=== PATIENT | male | born 1950 | race Caucasian/White ===

== ENCOUNTER → 2021-01-01 12:25 | Outpatient (CLI) | payer OTHER, SELFPAY | PROVIDERS: Visit Provider Internal Medicine Gastroenterology | DX: Z20.822 Contact with and (suspected) exposure to COVID-19 (principal) | CPT/HCPCS: U0003 ==

== ENCOUNTER 2021-01-04 11:29 | Day surgery (SDC) | payer OTHER, SELFPAY ==
[2020-12-31 10:48] VITALS: BMI 25.0
[2021-01-04 11:46] VITALS: BP 163/57; PULSE 60; RESP 16; TEMP 36.7; O2SAT 98
--- NOTE | 2021-01-04 12:07 | HMH.ANESCL ---
[facility] Anesthesia Checklist - Patient Identification Patient Identification: Arm Band - Structural Data Admitted From: Home Planned Operative Procedure/s: Colonoscopy Consent for Planned Operative Procedure(s) Verified: Yes - NPO Status Verified Time NPO: 00:00 - Airway Assessment C-Spine Mobility Assessed: Yes TMJ Mobility Assessed: Yes Dentition: Good Dentition - Neurological Assessment Level of Consciousness: Awake Hx Seizures: No Numbness or tingling in extremities: No - Anesthesia Plan Anesthesia Risk discussed: Yes Anesthesia Plan: Verified ASA Class: II Anesthesia Type: MAC [facility] History I have reviewed the patient's past medical history: Yes Medical History: Denies:: Cancer, Diabetes Mellitus Type 1, Diabetes Mellitus Type 2, Internal Pacemaker, MRSA, Seizures *Have you ever received a pneumonia vaccine?: No *Have you received a flu vaccine this season?: Yes Anesthesia experience/problems:: None Other Surgeries: No: Pacemaker Amputation: No Fractures: No - *Social History Last grade of school completed: High school graduate Smoking Status: Former smoker #Yrs smoked (if former smoker): 15 Smoking End Date: 3-4 YEARS AGO Alcohol Intake: current Alcohol Intake Frequency:: holidays/special occasions only Substance Use Type: denies use *Occupational Status:: retired Housing: house Household Members: spouse *Travel in the last 8 weeks: None Family Hx:: Diabetes
--- NOTE | 2021-01-04 12:42 | HMH.PROC ---
[facility] Procedure Note Procedure Note:: Colonoscopy Procedure Report: Colonoscopy Endoscopist: Iam Sesay II, MD Referring physician: Vance Wilson MD Date of Procedure: January 04, 2021 Equipment: Olympus 190 variable stiffness pediatric colonoscope Sedation: MAC sedation Indication: Mr. Contreras is a 70-year-old gentleman who is here for follow-up screening/surveillance colonoscopy. He did have a colonoscopy in 2003 at which time 2 small polyps (hyperplastic polyps x2) were removed. His colonoscopy April 2009 revealed 2 polyps (tubular adenoma x1/inflammatory polyp x1) were removed. His last colonoscopy in October 2015 revealed 4 small polyps (hyperplastic polyps x4) which were removed. He reports no abdominal pain, weight loss, change in his bowel habits or rectal bleeding. He reports no family history of colon cancer. Procedure: Prior to the procedure, a history and physical exam was performed, and patient's medications and allergies were reviewed. The risks, benefits and alternatives of the sedation and procedure were discussed with the patient. All questions were answered and informed consent was obtained. The patient was brought to the procedure room. Patient identification and proposed procedure were verified by the physician and the nurse. The patient was placed in a left lateral decubitus position and the scope was passed under direct vision. Throughout the procedure, the patient's blood pressure, pulse, and oxygen saturations were monitored continuously. The colonoscopy was accomplished without difficulty. The patient tolerated the procedure well. Findings: On digital rectal examination there was normal rectal tone. There were no external hemorrhoids. The prostate was 2+, smooth, soft, symmetric without nodules. The colonoscope was introduced through the anal canal to the rectum and advanced to the cecum. The ileocecal valve and appendiceal orifice were identified. The scope was advanced a short distance into the ileum which appeared grossly normal. The scope was then withdrawn into the colon. The cecum, ascending and transverse colon and mucosa were grossly normal. There were extensive scattered diverticuli throughout the descending and sigmoid colon (LEFT colon). The rectum itself was normal. Upon retroflexion within the rectum there were grade 2 internal hemorrhoids. The preparation was excellent throughout with [place] Preparation Score of 9. The cecal time was 12 minutes. Impression: 1. Extensive left-sided diverticulosis 2. Grade 2 internal hemorrhoids Plan: The patient should not require any further preventive/screening colonoscopy. I would encourage bulking fiber supplementation on a long-term daily maintenance basis.
[2021-01-04 13:15] VITALS: BP 125/84; PULSE 50; RESP 12; TEMP 36.3; O2SAT 98
[2021-01-04 13:25] VITALS: BP 114/86; PULSE 44; RESP 16; O2SAT 95
[2021-01-04 13:35] VITALS: BP 120/72; PULSE 44; RESP 16; O2SAT 97
[2021-01-04 13:42] VITALS: O2SAT 96
[2021-01-04 13:45] VITALS: BP 138/76; PULSE 50; RESP 16; TEMP 36.3; O2SAT 98
== END 2021-01-04 13:59 | disposition home or self-care (01) ==
LOC: OUTP 11:32
PROVIDERS: PCP Internal Medicine; Visit Provider Internal Medicine Gastroenterology
PROC: 0DJD8ZZ Inspection of Lower Intestinal Tract, Via Natural or Artificial Opening Endoscopic (ICD-10-PCS; CPT 45378; principal; 2021-01-04 14:00)
DX: Z12.11 Encounter for screening for malignant neoplasm of colon (principal); Z86.010 Personal history of colon polyps; K57.30 Diverticulosis of large intestine without perforation or abscess without bleeding; K64.1 Second degree hemorrhoids; Z79.899 Other long term (current) drug therapy; Z87.891 Personal history of nicotine dependence; Z83.3 Family history of diabetes mellitus
CPT/HCPCS: 45378

== ENCOUNTER → 2021-08-04 08:24 | Outpatient (CLI) | payer MEDICARE, SELFPAY ==
--- NOTE | 2021-08-04 08:28 | US_ITS ---
FINAL REPORT CLINICAL HISTORY: RT FLANK PAIN,RUQ PAIN-- gb absent FINDINGS: Sonographic images of the abdomen were obtained. The liver has increased echogenicity consistent with fatty infiltration. The gallbladder is surgically absent. There is no evidence of biliary ductal dilatation. The common hepatic duct measures 2 mm, which is within normal limits. Limited images of the pancreas are unremarkable. The spleen size is normal. The right kidney measures 11.2 cm in length. The left kidney measures 12.1 center in length. There is a 2.2 cm cystic mass in the left kidney which is consistent with a cyst. There is no evidence of hydronephrosis. The aorta has an unremarkable appearance. Limited images of the inferior vena cava are unremarkable. IMPRESSION: Post cholecystectomy. Fatty infiltration of the liver. Left renal cyst. Reviewed, Interpreted and Dictated by Jermaine Bender III, MD Transcribed by Zulma Mason Authenticated by Jermaine Bender III, MD on 08/04/2021 10:01:[address] [facility]
== END ==
PROVIDERS: PCP Internal Medicine; Visit Provider Internal Medicine
DX: R10.11 Right upper quadrant pain (principal); R10.9 Unspecified abdominal pain
CPT/HCPCS: 76700

== ENCOUNTER 2023-08-21 13:11 | Outpatient (CLI) | payer MEDICARE, SELFPAY ==
[2023-08-21 16:01] LABS: Basophils # 0.1 K/mm3 (0-0.2); Basophils % 1.2 % (0.1-2.0); Eosinophils # 0.1 K/mm3 (0.0-0.4); Eosinophils % 2.5 % (0.1-12.0); Hematocrit 49.1 % (42.0-52.0); Hemoglobin 15.6 g/dL (14.1-18.0); Lymphocytes # 1.4 K/mm3 (0.7-4.5); Lymphocytes % 25.3 % (10-50); Mean Corpuscular HGB Conc 31.7 g/dL (31.8-35.4); Mean Corpuscular Hemoglobin 31.9 pg (27.0-31.2); Mean Corpuscular Volume 100.6 fl (80-94); Mean Platelet Volume 9.1 fl (7.4-10.4); Monocytes # 0.4 K/mm3 (0.1-1.0); Monocytes % 7.3 % (1.7-9.3); Neutrophils # 3.5 K/mm3 (1.8-7.8); Neutrophils % 63.7 % (37.0-80.0); Platelet Count 204 K/mm3 (142-424); Red Blood Count 4.88 M/mm3 (4.60-6.20); Red Cell Distribution Width 13.6 % (11.5-17.5); White Blood Count 5.5 K/mm3 (4.8-10.8)
[2023-08-21 16:26] LABS: Alanine Aminotransferase 36 U/L (12-78); Albumin Level 4.5 g/dl (3.5-5.0); Albumin/Globulin Ratio 1.6 (1.1-1.8); Alkaline Phosphatase 99 U/L (38-126); Anion Gap 12.3 mEq/L (5-15); Aspartate Amino Transferase 39 U/L (17-59); Bilirubin,Total 0.8 mg/dl (0.2-1.3); Blood Urea Nitrogen 14 mg/dl (9-20); Calcium 9.6 mg/dl (8.4-10.2); Carbon Dioxide 31 mmol/L (22.0-30.0); Chloride 103 mmol/L (98-107); Chol/HDL Ratio 3.2 (1-3.5); Cholesterol 189 mg/dl (140-200); Estimated Glomerular Filt Rate 73 ml/min (>60); GFR (African American) 89 ML/MIN (>60); Globulin 2.9 g/dL (1.3-3.2); Glucose 94 mg/dl (74-100); HDL Cholesterol 59 mg/dl (40-60); Potassium 5.3 mmoL/L (3.5-5.1); Sodium 141 mmol/L (136-145); Total Protein,Serum 7.4 g/dl (6.3-8.2); Triglycerides 61 mg/dl (30-150); VLDL Cholesterol 12 mg/dL (0-40)
[2023-08-21 16:37] LABS: Direct LDL Cholesterol 101.41 mg/dL (100-129)
[2023-08-21 16:57] LABS: Prostate Specific Ag Screen 1.1 ng/ml (0.0-4.0)
[2023-08-23 19:50] LABS: Vitamin B12 236 pg/mL (239-931)
[2023-08-23 19:52] LABS: Folate 4.91 ng/mL
== END 2023-08-21 23:59 ==
LOC: LAB.DROPOF 13:12
PROVIDERS: PCP Internal Medicine; Visit Provider Internal Medicine
DX: E78.5 Hyperlipidemia, unspecified (principal); G60.9 Hereditary and idiopathic neuropathy, unspecified; N40.1 Benign prostatic hyperplasia with lower urinary tract symptoms; Z12.5 Encounter for screening for malignant neoplasm of prostate
CPT/HCPCS: 80053; 80061; 82607; 82746; 85025; G0103

== ENCOUNTER 2024-05-30 14:13 | Outpatient (CLI) | payer MEDICARE, SELFPAY ==
[2024-05-30 15:31] LABS: Vitamin B12 950 pg/mL (239-931)
== END 2024-05-30 23:59 | disposition home or self-care (01) ==
LOC: LAB.DROPOF 14:14
PROVIDERS: PCP Internal Medicine; Visit Provider Internal Medicine
DX: E53.8 Deficiency of other specified B group vitamins (principal)
CPT/HCPCS: 82607

== ENCOUNTER 2024-10-15 16:18 | Outpatient (CLI) | payer MEDICARE, SELFPAY ==
[2024-10-15 12:16] LABS: Basophils % 0.5 % (0.1-2.0); Eosinophils # 0.2 Kmm3 (0.0-0.4); Eosinophils % 2.7 % (0.1-12.0); Hematocrit 43.9 % (42.0-52.0); Hemoglobin 14.7 g/dL (14.1-18.0); Lymphocytes # 0.9 K/mm3 (0.7-4.5); Lymphocytes % 16.2 % (10-50); Mean Corpuscular HGB Conc 33.5 g/dL (31.8-35.4); Mean Corpuscular Hemoglobin 31.2 pg (27.0-31.2); Mean Corpuscular Volume 93.2 fl (80-94); Monocytes # 0.4 K/mm3 (0.1-1.0); Monocytes % 7.8 % (1.7-9.3); Neutrophils % 72.6 % (37.0-80.0); Nucleated Red Blood Cells # 0 10^3/uL; Nucleated Red Blood Cells % 0 %; Platelet Count 215 K/mm3 (142-424); Red Blood Count 4.71 M/mm3 (4.60-6.20); Red Cell Distribution Width 13.1 % (11.5-17.5); Red Cell Distribution Width-SD 44.8 fL; White Blood Count 5.5 K/mm3 (4.8-10.8)
[2024-10-15 12:46] LABS: Alanine Aminotransferase 39 U/L (12-78); Albumin Level 4.3 g/dl (3.5-5.0); Albumin/Globulin Ratio 1.4 (1.1-1.8); Alkaline Phosphatase 79 U/L (38-126); Anion Gap 12.5 mEq/L (5-15); Aspartate Amino Transferase 37 U/L (17-59); Bilirubin,Total 0.6 mg/dl (0.2-1.3); Blood Urea Nitrogen 17 mg/dl (9-20); Calcium 9.5 mg/dl (8.4-10.2); Carbon Dioxide 28 mmol/L (22.0-30.0); Chloride 107 mmol/L (98-107); Chol/HDL Ratio 2.7 (1-3.5); Cholesterol 200 mg/dl (140-200); Estimated Glomerular Filt Rate 73 ml/min (>60); GFR (African American) 89 ML/MIN (>60); Glucose 96 mg/dl (74-100); HDL Cholesterol 73 mg/dl (40-60); Potassium 4.5 mmoL/L (3.5-5.1); Sodium 143 mmol/L (136-145); Total Protein,Serum 7.3 g/dl (6.3-8.2); Triglycerides 52 mg/dl (30-150); VLDL Cholesterol 10 mg/dL (0-40)
[2024-10-15 13:14] LABS: Prostate Specific Ag Screen 0.9 ng/ml (0.0-4.0)
[2024-10-15 13:34] LABS: Vitamin B12 803 pg/mL (239-931)
== END 2024-10-15 23:59 | disposition home or self-care (01) ==
LOC: LAB.DROPOF 16:18
PROVIDERS: PCP Internal Medicine; Visit Provider Internal Medicine
DX: E53.8 Deficiency of other specified B group vitamins (principal); R03.0 Elevated blood-pressure reading, without diagnosis of hypertension; Z98.890 Other specified postprocedural states; E78.5 Hyperlipidemia, unspecified; Z12.5 Encounter for screening for malignant neoplasm of prostate; M79.2 Neuralgia and neuritis, unspecified
CPT/HCPCS: 80053; 80061; 82607; 85025; G0103

== ENCOUNTER 2025-05-13 16:48 | Outpatient (CLI) | payer MEDICARE, SELFPAY ==
--- OUTSIDE RECORDS SUMMARY | 2025-05-13 16:51 | XMS_ITS | Data Portability ---
Author Organization [facility] JOE Holder TAMPA CLOSED Address [address] [place] [address] Care Team Providers Care Quality Associate Name Role Phone PERNELLNATELora Bowen Primary Care Provider Assessment Encounter Date Assessment Date Assessment LastModified by Organization Details LastModified Time 07/17/2023 07/17/2023 Follow up yearly [email or web address] Not available 07/17/2023 09:39:43 09/06/2023 09/06/2023 Follow up yearly [email or web address] Not available 09/06/2023 15:07:13 02/06/2024 02/06/2024 Follow up yearly [email or web address] Not available 02/05/2024 13:56:25 Plan of Treatment Reminders Order Date Submit Date Provider Last Modified By Organization Details Last Modified Time Details Appointments DERM ESTABLISH ED 2024 11:10A M FLAKITO COTTON MD Not available Not available Not available Lab surgical pathology study 2023 024 [facility], [facility], [place], [address], 09/08/2023 10:30:45 urinalysi s panel, auto 2021 022 [facility], [address] [place] [address], [address], [place], [address], 06/16/2022 08:30:34 urinalysi s panel, auto 2021 022 [email or web address] [facility], [address], [address] [place] [address], [address], 05/07/2022 11:23:31 PSA, serum or plasma 2021 022 [email or web address] [facility], [address], [address], [place], [address], 05/07/2022 11:23:31 Referral None recorded. Procedures None recorded. Surgeries None recorded. Imaging None recorded. Medication Orders None recorded. Patient TargetsNo targets recorded. Patient Instructions Encounter Date Encounter Id Patient Instructions Last Modified By Organization Details Last Modified Time 06/15/2022 [id number] healthy together [email or web address] Not availabl e 06/16/2022 08:30:34 07/17/2023 [id number] Education: We discussed the potential diagnostic options, options for further evaluation and treatments, and the risks and benefits of each. [email or web address] Not available 07/17/2023 07:19:52 02/06/2024 [id number] Education: We discussed the potential diagnostic options, options for further evaluation and treatments, and the risks and benefits of each. [email or web address] Not available 02/05/2024 13:56:25 Reason for Referral None Reported. Results Created Date Observation Date Name Description Value Unit Range Abnormal Flag Note LastModifiedBy Organization Detail LastModifiedTime 04/12/2004/12/2022 urina lysis panel , auto Unknown Analyte Clean Catch Not Available [facility] [address], [place], [address], 04/12/2022 13:17:01 04/12/2004/12/2022 urina lysis panel , auto Unknown Analyte Yellow Not Available [facility] [address], [place], [address], 04/12/2022 13:17:01 04/12/20 22 04/12/2022 urina lysis panel , auto Unknown Analyte Clear Not Available [facility] [address] [place] [address] Rd [address], [place], [address], 04/12/2022 13:17:01 04/12/20 22 04/12/2022 urina lysis panel , auto Unknown Analyte 1.020 Not Available [facility] [address] [place] [address] Rd [address], [place], [address], 04/12/2022 13:17:01 04/12/2004/12/2022 urina lysis panel , auto Unknown Analyte 1.003- 1.035 Not Available [facility] [address], [place], [address], 04/12/2022 13:17:01 04/12/2004/12/2022 urina lysis panel , auto Unknown Analyte 5.0 Not Available [facility] [address] [place] [address] Rd [address], [place], [address], 04/12/2022 13:17:01 04/12/2004/12/2022 urina lysis panel , auto Unknown Analyte 5.0-8. 0 Not Available [facility] [address] [place] [address] Rd [address], [place], [address], 04/12/2022 13:17:01 04/12/2004/12/2022 urina lysis panel , auto Unknown Analyte Negati ve Not Available [facility] [address] [place] [address] Rd [address], [place], [address], 04/12/2022 13:17:01 04/12/20 22 04/12/2022 urina lysis panel , auto Unknown Analyte Negati ve Not Available [facility] [address] [place] [address] Rd [address], [place], [address], 04/12/2022 13:17:01 04/12/20 22 04/12/2022 urina lysis panel , auto Unknown Analyte Negati ve Not Available [facility] [address] [place] [address] Rd [address], [place], [address], 04/12/2022 13:17:01 04/12/2004/12/2022 urina lysis panel , auto Unknown Analyte Negati ve Not Available [facility] [address], [place], [address], 04/12/2022 13:17:01 04/12/2004/12/2022 urina lysis panel , auto Unknown Analyte Trace Not Available [facility] [address], [place], [address], 04/12/2022 13:17:01 04/12/2004/12/2022 urina lysis panel , auto Unknown Analyte Negati ve Not Available [facility] [address] [place] [address] Rd [address], [place], [address], 04/12/2022 13:17:01 04/12/2004/12/2022 urina lysis panel , auto Unknown Analyte Normal Not Available [facility] [address] [place] [address] Rd [address], [place], [address], 04/12/2022 13:17:01 04/12/2004/12/2022 urina lysis panel , auto Unknown Analyte Normal Not Available [facility] [address] [place] [address] Rd [address], [place], [address], 04/12/2022 13:17:01 04/12/2004/12/2022 urina lysis panel , auto Unknown Analyte 15 mg/dl (Sm) Not Available [facility] [address] [place] [address] Rd [address], [place], [address], 04/12/2022 13:17:01 04/12/2004/12/2022 urina lysis panel , auto Unknown Analyte Negati ve Not Available [facility] [address], [place], [address], 04/12/2022 13:17:01 04/12/2004/12/2022 urina lysis panel , auto Unknown Analyte Normal Not Available [facility] [address], [place], [address], 04/12/2022 13:17:01 04/12/2004/12/2022 urina lysis panel , auto Unknown Analyte Normal 1 mg/dl Not Available [facility] [address], [place], [address], 04/12/2022 13:17:01 04/12/2004/12/2022 urina lysis panel , auto Unknown Analyte Negati ve Not Available [facility] [address], [place], [address], 04/12/2022 13:17:01 04/12/2004/12/2022 urina lysis panel , auto Unknown Analyte Negati ve Not Available [facility] [address], [place], [address], 04/12/2022 13:17:01 04/12/20 22 04/12/2022 urina lysis panel , auto Unknown Analyte 250 Daniel/ul Not Available [facility] [address], [place], [address], 04/12/2022 13:17:01 04/12/2004/12/2022 urina lysis panel , auto Unknown Analyte Negati ve Not Available [facility] [address], [address], 04/12/2022 13:17:01 05/04/20 22 05/04/2022 PSA, serum or plasm a PSA 0.66 NG/mL 0.0 - 4.0 Not Available [facility] [address], [place], [address], 05/04/2022 14:53:27 05/04/20 22 05/04/2022 urina lysis panel , auto Unknown Analyte Clean Catch Not Available [facility] [address], [place], [address], 05/04/2022 13:15:45 05/04/20 22 05/04/2022 urina lysis panel , auto Unknown Analyte Straw Not Available [facility] [address], [place], [address], 05/04/2022 13:15:45 05/04/20 22 05/04/2022 urina lysis panel , auto Unknown Analyte Clear Not Available [facility] [address], [place], [address], 05/04/2022 13:15:45 05/04/20 22 05/04/2022 urina lysis panel , auto Unknown Analyte 1.005 Not Available [facility] [address], [place], [address], 05/04/2022 13:15:45 05/04/20 22 05/04/2022 urina lysis panel , auto Unknown Analyte 1.003- 1.035 Not Available [facility] [address], [place], [address], 05/04/2022 13:15:45 05/04/20 22 05/04/2022 urina lysis panel , auto Unknown Analyte 7.0 Not Available [facility] [address], [place], [address], 05/04/2022 13:15:45 05/04/20 22 05/04/2022 urina lysis panel , auto Unknown Analyte 5.0-8. 0 Not Available [facility] [address], [place], [address], 05/04/2022 13:15:45 05/04/20 22 05/04/2022 urina lysis panel , auto Unknown Analyte Negati ve Not Available [facility] [address] [place] [address] [address], [place], [address], 05/04/2022 13:15:45 05/04/20 22 05/04/2022 urina lysis panel , auto Unknown Analyte Negati ve Not Available [facility] [address] [place] [address] [address], [place], [address], 05/04/2022 13:15:45 05/04/20 22 05/04/2022 urina lysis panel , auto Unknown Analyte Negati ve Not Available [facility] [address] [place] [address] [address], [place], [address], 05/04/2022 13:15:45 05/04/20 22 05/04/2022 urina lysis panel , auto Unknown Analyte Negati ve Not Available [facility] [address], [place], [address], 05/04/2022 13:15:45 05/04/20 22 05/04/2022 urina lysis panel , auto Unknown Analyte Negati ve Not Available [facility] [address] [place] [address] [address], [place], [address], 05/04/2022 13:15:45 05/04/20 22 05/04/2022 urina lysis panel , auto Unknown Analyte Negati ve Not Available [facility] [address] [place] [address] [address], [place], [address], 05/04/2022 13:15:45 05/04/20 22 05/04/2022 urina lysis panel , auto Unknown Analyte Normal Not Available [facility] [address] [place] [address] [address], [place], [address], 05/04/2022 13:15:45 05/04/20 22 05/04/2022 urina lysis panel , auto Unknown Analyte Normal Not Available [facility] [address], [place], [address], 05/04/2022 13:15:45 05/04/20 22 05/04/2022 urina lysis panel , auto Unknown Analyte Negati ve Not Available [facility] [address], [place], [address], 05/04/2022 13:15:45 05/04/20 22 05/04/2022 urina lysis panel , auto Unknown Analyte Negati ve Not Available [facility] [address], [place], [address], 05/04/2022 13:15:45 05/04/20 22 05/04/2022 urina lysis panel , auto Unknown Analyte Normal Not Available [facility] [address], [place], [address], 05/04/2022 13:15:45 05/04/20 22 05/04/2022 urina lysis panel , auto Unknown Analyte Normal 1 mg/dl Not Available [facility] [address] [place] [address] [address], [place], [address], 05/04/2022 13:15:45 05/04/20 22 05/04/2022 urina lysis panel , auto Unknown Analyte Negati ve Not Available [facility] [address], [place], [address], 05/04/2022 13:15:45 05/04/20 22 05/04/2022 urina lysis panel , auto Unknown Analyte Negati ve Not Available [facility] [address], [place], [address], 05/04/2022 13:15:45 05/04/20 22 05/04/2022 urina lysis panel , auto Unknown Analyte 50 Daniel/ul Not Available [facility] [address] [place] [address] [address], [place], [address], 05/04/2022 13:15:45 05/04/20 22 05/04/2022 urina lysis panel , auto Unknown Analyte Negati ve Not Available [facility] [address], [place], [address], 05/04/2022 13:15:45 06/15/20 22 06/15/2022 urina lysis panel , auto Unknown Analyte Clean Catch Not Available [facility] [address], [place], [address], 06/15/2022 13:01:15 06/15/20 22 06/15/2022 urina lysis panel , auto Unknown Analyte Yellow Not Available [facility] [address], [place], [address], 06/15/2022 13:01:15 06/15/20 22 06/15/2022 urina lysis panel , auto Unknown Analyte Clear Not Available [facility] [address], [place], [address], 06/15/2022 13:01:15 06/15/20 22 06/15/2022 urina lysis panel , auto Unknown Analyte 1.010 Not Available [facility] [place] [address], [place], [address], 06/15/2022 13:01:15 06/15/20 22 06/15/2022 urina lysis panel , auto Unknown Analyte 1.003- 1.035 Not Available [facility] [address], [place], [address], 06/15/2022 13:01:15 06/15/20 22 06/15/2022 urina lysis panel , auto Unknown Analyte 5.0 Not Available [facility] [address], [place], [address], 06/15/2022 13:01:15 06/15/20 22 06/15/2022 urina lysis panel , auto Unknown Analyte 5.0-8. 0 Not Available [facility] [address], [place], [address], 06/15/2022 13:01:15 06/15/20 22 06/15/2022 urina lysis panel , auto Unknown Analyte Negati ve Not Available [facility] [address], [place], [address], 06/15/2022 13:01:15 06/15/20 22 06/15/2022 urina lysis panel , auto Unknown Analyte Negati ve Not Available [facility] [address], [place], [address], 06/15/2022 13:01:15 06/15/20 22 06/15/2022 urina lysis panel , auto Unknown Analyte Negati ve Not Available [facility] [address], [place], [address], 06/15/2022 13:01:15 06/15/20 22 06/15/2022 urina lysis panel , auto Unknown Analyte Negati ve Not Available [facility] [address], [place], [address], 06/15/2022 13:01:15 06/15/20 22 06/15/2022 urina lysis panel , auto Unknown Analyte Negati ve Not Available [facility] [address] [place] [address] [address], [place], [address], 06/15/2022 13:01:15 06/15/20 22 06/15/2022 urina lysis panel , auto Unknown Analyte Negati ve Not Available [facility] [address], [place], [address], 06/15/2022 13:01:15 06/15/20 22 06/15/2022 urina lysis panel , auto Unknown Analyte Normal Not Available [facility] [address] [place] [address] [address], [place], [address], 06/15/2022 13:01:15 06/15/20 22 06/15/2022 urina lysis panel , auto Unknown Analyte Normal Not Available [facility] [address], [place], [address], 06/15/2022 13:01:15 06/15/20 22 06/15/2022 urina lysis panel , auto Unknown Analyte Negati ve Not Available [facility] [address] [address], [place], [address], 06/15/2022 13:01:15 06/15/20 22 06/15/2022 urina lysis panel , auto Unknown Analyte Negati ve Not Available [facility] [address], [place], [address], 06/15/2022 13:01:15 06/15/20 22 06/15/2022 urina lysis panel , auto Unknown Analyte Normal Not Available [facility] [address] [place] [address] [address], [place], [address], 06/15/2022 13:01:15 06/15/20 22 06/15/2022 urina lysis panel , auto Unknown Analyte Normal 1 mg/dl Not Available [facility] [address] [place] [address] [address], [place], [address], 06/15/2022 13:01:15 06/15/20 22 06/15/2022 urina lysis panel , auto Unknown Analyte Negati ve Not Available [facility] [address] [place] [address] [address], [place], [address], 06/15/2022 13:01:15 06/15/20 22 06/15/2022 urina lysis panel , auto Unknown Analyte Negati ve Not Available [facility] [address] [place] [address] [address], [place], [address], 06/15/2022 13:01:15 06/15/20 22 06/15/2022 urina lysis panel , auto Unknown Analyte 50 Daniel/ul Not Available [facility] [address] [place] [address] [address], [place], [address], 06/15/2022 13:01:15 06/15/20 22 06/15/2022 urina lysis panel , auto Unknown Analyte Negati ve Not Available [facility] [address] [place] [address] [address], [place], [address], 06/15/2022 13:01:15 09/06/19 24 09/06/2023 SURGI MEGHNA surgical SEE BELOW normal Depar tment of Patho logy Surgi meghna Patho logy Repor t NAME: LARON SLOAN PATH. 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 SOURC E OF SPECI MEN: SKIN BIOPS Y, LEFT UPPER MEDIA L BACK CLINI MEGHNA INFOR MATIO N: SPECI MEN COLLE CTION NOTES : ? CYST D48.5 NEOPL ASM OF UNCER TAIN BEHAV IOR OF SKIN Gross Descr iptio n: Recei eduar in forma ciaran label ed with the patie nt's name and desig nated left upper media l back is an excis ion of unrem arkab le appea ring skin (4.0 x 1.7 cm) excis ed to a depth of 1.0 cm. The farhat ns are inked and the speci men is secti oned to revea l a cysti c nodul e (1.[address]) fille d with mcmahon-b rown hemor rhagi c debri s. Repre senta tive secti ons submi tted in one casse tte label ed A1. MT 09/06 01:18 PM Micro scopi c Descr iptio n: A micro scopi c exami natio n has been perfo rmed and the resul t(s) are as noted above . NEVIN RILEY M.D. Maryam d Out Date: 09/07 10:30 Page 1 of 1 Not Available [facility] [address] [place], [address], 09/08/2023 10:30:45 Result Notes None recorded. 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 Procedures Surgical History Date Name Laterality Status Provider Name and Address Organization Details Recorded Time 02/06/20 24 Destruction BN Lesions completed Patricia Gorman [facility] 02/06/2024 09:46:09 09/06/19 24 Excision BN lesion; trunk, arms or legs completed FLAKITO COTTON MD [address] [place] [address], [phone], [facility] 09/06/2023 16:59:17 05/03/20 22 I&D Abscess/Cyst Single/Simple completed Michelle Cross [facility] 05/03/2022 15:05:17 04/28/20 21 Post Void Residual; Ultrasound completed Rocío López [facility] 04/28/2021 15:35:42 02/09/20 21 Electromyography (EMG) with Nerve Conduction Study (NCV) completed ZAHIDA MONTEMAYOR MD [address] [place] [address], [address], [facility] 02/08/2021 17:42:53 01/22/20 21 Injection - Joint/Bursa, Major completed RIDGE SHER MD [address] [place] [address], [phone], [facility] 01/21/2021 13:34:30 05/29/20 20 Shave Lesion; face, ear, eyelid, nose, lip, muc memb completed FLAKITO COTTON MD [address] [place], [address], [facility] 06/06/2020 16:00:07 01/08/20 19 Destruction Premalignant Lesion(s) completed Ines Collado [facility] 2019 14:20:12 04/03/20 18 Destruction Premalignant Lesion(s) completed Yue Eddie [facility] 04/03/2018 11:12:57 04/03/20 18 [facility]ruction [facility] 11:12:31 11/30/19 18 Post Void Residual; Ultrasound completed Ashlee Ocampo [facility] 11/29/2017 15:51:47 Cholecystectomy completed Zeus Solomon [facility] 06/14/2017 14:09:42 Imaging Results None recorded. Procedure Notes None recorded. Medical Equipment None Reported. Allergies No known drug allergies Medications Name Sig Start Date Stop Date Status Note LastModified by Organization Details LastModified Time Augmentin 875 mg-125 mg tablet Take 1 tablet every 12 hours by oral route. 01/15 completed Not Available Not Available Not Available BuSpar 10 mg tablet Take by oral route. 12/12 completed Not Available Not Available Not Available tamsulosi n 0.4 mg capsule 1 capsule twice daily 2023 active Not Available Not Available Not Avai lable diclofena c sodium 50 mg tablet,de layed release TAKE 1 TABLET BY MOUTH TWICE DAILY active Not Available Not Available No t Available Levaquin 500 mg tablet Take 1 tablet every 24 hours by oral route. 2022 active Not Available Not Available Not Avai lable cefuroxim e axetil 500 mg tablet Take 1 tablet every 12 hours by oral route. 2021 active Not Available Not Available Not Avai lable finasteri de 5 mg tablet Take 1 tablet every day by oral route. 12/12 completed Not Available Not Available Not Available nabumeton e 500 mg tablet TAKE 1 TABLET BY MOUTH TWICE A DAY 11/11 completed Not Available Not Available Not Available Bactrim DS 800 mg-160 mg tablet Take 1 tablet every 12 hours by oral route. 12/12 completed Not Available Not Available Not Available tadalafil 5 mg tablet 01/15 completed Not Available Not Available Not Available Prilosec Every night at bedtime 07/21 completed Frequenc y: qhs;Medi cation Descript ion: omeprazo le; Dosage:1 ; Route:or al; refills: 0 Not Available Not Available Not Available Probiotic Formula 10 billion cell(2 billion ea) capsule 07/21 completed Medicati on Descript ion: bifidoba cterium- lactobac illus; Route:or al; refills: 0 Not Available Not Available Not Available Vitals Date Recorded Body height Body mass index (BMI) Body weight Provider Name and Address Organization Details Last Updated DateTime 05/04/2022 182.88 cm 25.1 kg/m2 11535.59 g Ferdinand Olson [facility] 05/04/2022 13:14:58 Date Recorded Body height Body mass index (BMI) Body weight Provider Name and Address Organization Details Last Updated DateTime 06/15/2022 182.88 cm 25.1 kg/m2 27750.59 g Aleta Stockton [facility] 06/15/2022 13:00:54 Social History Question Answer Notes LastModified by [facility] Details LastModified Time Tobacco Smoking Status Former Smoker Zeus Solomon [facility] 06/14/2017 14:09:29 Marital Status [email or web address] Informatio n not available 06/14/2017 What Was The Date Of Your Most Recent Tobacco Screening? 03/15/2022 [email or web address] Information not available 03/15/2022 What Is Your Relationship Status? [email or web address] Information not available 05/04/2022 Has Tobacco Cessation Counseling Been Provided? No [email or web address] Information not available 05/04/2022 Have You Recently Traveled Abroad? No [email or web address] Information not available 05/04/2022 Sex: Unknown Functional Status Question Answer Note LastModified by Organizat ion Details LastModified Time Do you use any illicit or recreational drugs? No [email or web address] Information not available 05/04/2022 Do you or have you ever used any other forms of tobacco or nicotine? No [email or web address] Information not available 05/04/2022 What is your level of alcohol consumption? Occasional [email or web address] Information not available 06/14/2017 Mental Status None recorded. Family History Relationship Description Onset Age of this Age Resolved Age Notes LastModified by Organization Details LastModified Time Unspecified Relation Kidney disease [email or web address] Not available 2016 14:09:16 Medical History Condition Response Anxiety Disorder Y Past Encounters Encounter ID Performer Location Encounter Start Date Encounter Closed Date Diagnosis/Indication Diagnosis SNOMED-CT Code Diagnosis ICD10 Code Diagnosis IMO Codes Diagnosis Note [id number] [facility] [place] [address] 09/19/2016 17:14:13 09/19/2016 17:14:13 [id number] FLAKITO COTTON MD [facility] [address] [place] [address] 01/13/2017 10:49:29 01/16/2017 08:49:36 Lentigo 878167744 L81.4 reassuranc e Senile hyperkeratosis 39 2417974 L82.1 reassuranc e Lipoma 80836541 D17.9 reassuranc e Hemangioma 853766489 D18 .00 reassuranc e Tick bite without infection 612480478 T14.8 removed with forceps [id number] MAC ALMIEDA MD [facility] [address] [place] [address] 06/14/2017 11:55:53 06/14/2017 16:37:54 Chronic prostatitis 42186674 N41.1 Esthela shirley that his symptoms have resolved I suggest we just observe him. He will follow up in one year earlier if necessary. If his symptoms recur he will contact me and we will place him on Relafen 500 mg twice a day for 1 month.His blood pressure was slightly elevated today. He states that often when he visits the physician' s office his blood pressure rises that typically is normal at home. [id number] JOYA WALLACE MD ENT [address] [place] [address] 07/21/2017 12:39:50 07/21/2017 15:46:31 Bilateral tinnitus 3836126363 102 H93.13 secondary to sensorineu ral hearing loss. Not severe enough for hearing aids. Discussed lack of adequate treatment options for tinnitus Perforatio n of nasal septum 88489860 J34.89 from a history of septoplast y by another surgeon in the past. Having nasal obstructio n which I think is due to bilateral inferior turbinate hypertroph y. We discussed surgical interventi on. He will consider and let us know Sensorineu ral hearing loss of bilateral ears 223646880 H90.3 [id number] ZOHREH DINEROJOHANN, [facility] [address] [place] [address] 07/21/2017 13:32:49 07/21/2017 15:44:55 Sensorineural hearing loss of bilateral ears 131826675 H90.3 Bilateral tinnitus 56447 23765 102 H93.13 [id number] MAC ALMEIDA MD [facility] [address] [place] [address] 11/29/2017 15:32:36 11/29/2017 16:28:10 Chronic prostatitis 69290311 N41.1 discussion time 30 minutes. I suggest we treat him with finasterid e 5 mg daily for at least 3 months. He is also placed on Bactrim double strength twice a day for 2 weeks and nabumetone twice a day for 2 weeks. He will follow-up in one month [id number] MD AZRA SCOTT [facility] [address] [place] [address] 04/03/2018 10:18:35 04/03/2018 14:10:45 Senile hyperkeratosis 944711741 L82.[address] x 1 Hemangioma 367560673 D18 .00 reassuranc e Actinic keratosis 03[address] x 1 Pain of skin 886473376 R 52 [id number] MD AZRA SCOTT [address] [place] [address] 2019 13:56:11 2019 16:02:03 Senile hyperkeratosis 034208873 L82.1 Reassuranc e and education regarding the disorder and options. Hemangioma 704358627 D18 .00 Reassuranc e and education regarding the disorder and options. Actinic keratosis 007 L57.0 Education, then cryodestru ction with liquid nitrogen (LN) x 2 [id number] MAC ALMEIDA MD [facility] [address] [place] [address] 12/13/2019 08:47:06 12/13/2019 09:31:11 Chronic prostatitis 66084822 N41.1 we will start antibody therapy. We will also start Relafen and Flomax Primary er ectile dysfunction 796836662 N52.9 [id number] FLAKITO COTTON MD [facility] [address] [place] [address] 05/29/2020 11:09:16 05/29/2020 13:28:20 Raised seborrheic keratosis 1980900765 80429 L82.1 Reassuranc e and education regarding the disorder and options. Hemangioma 800538936 D18 .00 Reassuranc e and education regarding the disorder and options. Epidermoid cyst of skin 890002926 L72.3 Left upper back 2.2 cm - declined treatment at this time Neoplasm o f uncertain behavior of skin 16899552 D48.5 Left Sideburn - Education, thenshave removaland base destroyed with electrodes sication. Dysplastic nevus of skin 748861394 D22.9 Reassuranc e and education regarding the disorder and options. [id number] RIDGE SHER MD [facility] [address] [address] 11/11/2020 13:43:49 11/11/2020 14:46:12 Pain in left knee 2188542678 97808 M25.562 Mr Sloan has mild to moderate OA of the left knee. I recommend a course of diclofenac . Idiopathic peripheral neuropathy 89713934 G60.9 Mr Sloan has history consistent with peripheral neuropathy . He has lots of questions regardings the origins and treatments for the neuropathy . I recommend he take the gabapentin as previously prescribed by his PCP and consultati on with neurology. [id number] ZAHIDA MONTEMAYOR MD NEUROLOGY [facility] [address] [place] [address] 01/15/2021 08:20:06 01/15/2021 09:27:59 Neuropathy 462075838 G62.9 [id number] RIDGE SHER MD [facility] [address] [address] 01/15/2021 09:51:01 01/15/2021 10:52:15 Tear of lateral meniscus of knee 338745179 S83.282A Mr Sloan has had recurring mechanical symptoms of catching of the left knee. I recommend MRI of the left knee to evaluate for lateral mensicus tear. [id number] RIDGE SHER MD [facility] [address] [address] 01/21/2021 13:08:05 01/21/2021 13:50:45 Tear of medial meniscus of knee 436012297 S83.242A Mr Sloan does have a complex tear of the medial meniscus as well as some mild arthritis of the medial and patellofem oral compartmen ts. I had extensive discussion with him regarding treatment options to include continuing non operative management since he is improving versus arthroscop ic partial meniscecto my. As he is improving I recommend he continue with sparing use of NSAIDs and he was given corticoste roid injection in the left knee. [id number] ZAHIDA MONTEMAYOR MD NEUROLOGY [facility] [address] [place] [address] 02/08/2021 09:19:50 02/09/2021 08:44:29 Neuropathy 846473084 G62.9 [id number] MD [facility] [address] [address] 03/30/2021 11:06:08 03/30/2021 12:14:21 Benign prostatic hyperplasia with outflow obstruction 989846880 N40.1 Retention of urine 28740 4002 R33.9 [id number] MD [facility] [address] [address] 03/31/2021 16:28:15 03/31/2021 16:57:49 Postoperative retention of urine 986738688 R33.8 He appears to be doing acceptably . He will follow up with me in 1 month. [id number] MAC ALMEIDA MD [facility] [address] [place] [address] 04/28/2021 14:55:45 04/28/2021 16:44:57 Benign prostatic hyperplasia with outflow obstruction 373328223 N40.1 Postoperat rufina retention of urine 570231206 R33.8 He appears to be doing acceptably . He will follow up with me in 6 month. with psa [id number] MAC ALMEIDA MD [facility] [address] [place] [address] 03/15/2022 13:00:08 03/15/2022 13:33:17 Chronic prostatitis 64083231 N41.1 we will start antibody therapy. We will also start Relafen and Flomax Benign pro static hyperplasia with outflow obstruction 003181648 N40.1 follow-up 3-4 weeks [id number] MAC ALMEIDA MD [facility] [address] [place] [address] 04/12/2022 12:57:09 04/12/2022 13:50:24 Benign prostatic hyperplasia with outflow obstruction 687146440 N40.1 follow-up 3-4 weeks With PSA Chronic prostatitis 1989 5009 N41.1 As above [id number] FLAKITO COTTON MD [facility] [address] [place] [address] 05/03/2022 14:47:52 05/03/2022 15:46:50 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 Multiple b enign melanocytic nevi 821901806 D22.9 reassuranc e Lipoma 99442828 D17.9 reassuranc e Skin sensa tion disturbance 96829642 R20.9 [id number] MAC ALMEIDA MD [facility] [address] [place] [address] 05/04/2022 12:47:22 05/04/2022 13:42:09 Lower urinary tract symptoms due to benign prostatic hypertrophy 0578571317 9101 N40.1 Continue as above follow-up in 4-6 months, His PSA today was 0.66 Chronic prostatitis 1989 5009 N41.1 As above [id number] MAC ALMEIDA MD [facility] [address] [place] [address] 06/15/2022 12:51:09 06/15/2022 13:36:36 Benign prostatic hyperplasia with outflow obstruction 267741198 N40.1 follow-up 6 months Chronic prostatitis 1989 5009 N41.1 As above [id number] FLAKITO COTTON MD [facility] [address] [place] [address] 07/17/2023 09:22:33 07/17/2023 11:56:00 Solar lentiginosis 634744158 X32.XXXS Reassuranc eRecommend ed Equate Ultra Sunscreen 30+ and sun protecting hats/cloth ing Epidermoid cyst 07499221 6 L72.0 left upper medial backI&D in the pastdiscus sed excision procedure and diagnosis - pt will schedule Raised adry orrheic keratosis 1179249002 63243 L82.1 Reassuranc e Multiple b enign melanocytic nevi 865364996 D22.9 Reassuranc e Lipoma 66070456 D17.9 Reassuranc e 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 name or strengthWi ll BX if becomes bothersome Hemangioma 844791376 D18 .00 Reassuranc e and education regarding the disorder and options. Inflamed s eborrheic keratosis 698514551 L82.0 LN X 5 Health Concerns Section Related Observation LastModified by Organization Detai ls LastModified Time None Recorded Concern Status LastModified by Organization Details LastModified Time None Recorded Advance Directives Directive None Recorded Payers Insurance Date Sequence Insurance Name Policy Number Policy Hein Covered Member ID Hein Member ID Guarantor Name 04/02/2018 1 [place] [id number] Laron Sloan [id number] Laron Sloan 02/09/2024 1 [employer] (MEDICARE REPLACEMENT/A DVANTAGE - PPO) Laron Sloan [id number] Laron Sloan Notes Date Note Type Note Provider Name and Address Organization Details Recorded Time 05/04/2022 text/html Patient is here in follow-up regarding chronic prostatitis and BPH symptoms. 3 weeks ago is placed on Levaquin. He was also encouraged to take his tamsulosin on a scheduled basis. His symptoms actually are completely resolved. He has failed that he does much better if he takes the tamsulosin on a daily basis. He has decreased it to once per day. MAC ALMEIDA MD [facility] [place], [address], [facility] 05/07/2022 11:24:41 06/15/2022 text/html Patient is here for 1 month follow-up after flareups of chronic prostatitis. He states is done rather well but after recent straining he did have some flare up of symptoms for a couple days with some suprapubic discomfort and dysuria. He also had some more noticeable discomfort and each testis. He's been off antibiotics since mid April. He has occasionally taken ibuprofen. I suggest that he take nabumetone on a scheduled basis for at least 2 weeks. If this fails to resolve I suggest weeks consider repeat cystoscopy for further assessment of intervention. MAC ALMEIDA MD [facility] [place], [address], [facility] 06/16/2022 08:31:06 07/17/2023 text/html ROS as noted in the HPI Established Patient LOCATION: left upper medial backDURATION: x yearsSYMPTOMS: raised, drainage, tender at timesTREATMENTS: I & D x twice Denies any other new, changing, or bleeding lesions, or other rashes, feels well,good mood and has no family history of melanoma. FLAKITO COTTON MD [facility] [place], [address], [facility] 07/17/2023 10:43:04 09/06/2023 text/html ROS as noted in the HPI Established patient returns for excision of tender flat nodule left upper medial back Denies any other new, changing, or bleeding lesions, or other rashes, feels well, good mood and has no family history of melanoma. FLAKITO COTTON [facility] [place], [address], [facility] 09/06/2023 17:01:57 02/06/2024 text/html ROS as noted in the HPI Established Patient LOCATION: left frontal scalp, left abdomenDURATION: x yearsSYMPTOMS: noneTREATMENTS: noneMODIFYING FACTORS: Pt is requesting removal today with LN No issues with bleeding, scarring, or healingDenies any other new, changing, or bleeding lesions, or other rashes, feels well,good mood and has no family history of melanoma. FLAKITO COTTON MD [address] [place] [address], [address], [facility] 02/06/2024 13:25:25
[2025-05-13 17:11] LABS: Hematocrit 45.3 % (42.0-52.0); Hemoglobin 14.9 g/dL (14.1-18.0); Immature Granulocytes % 0.3 %; Mean Corpuscular HGB Conc 32.9 g/dL (31.8-35.4); Mean Corpuscular Hemoglobin 29.9 pg (27.0-31.2); Mean Corpuscular Volume 91.0 fl (80-94); Nucleated Red Blood Cells % 0 %; Platelet Count 209 K/mm3 (142-424); Red Blood Count 4.98 M/mm3 (4.60-6.20); Red Cell Distribution Width-SD 41.8 fL; White Blood Count 6.2 K/mm3 (4.8-10.8)
[2025-05-13 17:42] LABS: Albumin Level 4.5 g/dl (3.5-5.0); Chloride 102 mmol/L (98-107); Potassium 3.9 mmoL/L (3.5-5.1); Sodium 142 mmol/L (136-145)
[2025-05-13 17:45] LABS: Alanine Aminotransferase 42 U/L (12-78); Albumin/Globulin Ratio 1.4 (1.1-1.8); Alkaline Phosphatase 81 U/L (38-126); Amylase 75 U/L (30-110); Anion Gap 14.9 mEq/L (5-15); Aspartate Amino Transferase 39 U/L (17-59); Bilirubin,Total 0.6 mg/dl (0.2-1.3); Blood Urea Nitrogen 14 mg/dl (9-20); Carbon Dioxide 29 mmol/L (22.0-30.0); Creatinine,Serum 1.00 mg/dl (0.66-1.25); Estimated Glomerular Filt Rate 73 ml/min (>60); GFR (African American) 88 ML/MIN (>60); Globulin 3.2 g/dL (1.3-3.2); Total Protein,Serum 7.7 g/dl (6.3-8.2)
[2025-05-13 17:46] LABS: Calcium 9.4 mg/dl (8.4-10.2); Glucose 80 mg/dl (74-100)
== END 2025-05-13 23:59 | disposition home or self-care (01) ==
LOC: LAB.DROPOF 16:49
PROVIDERS: PCP Internal Medicine; Visit Provider Internal Medicine
DX: R10.13 Epigastric pain (principal); R14.0 Abdominal distension (gaseous)
CPT/HCPCS: 80053; 82150; 85025

== ENCOUNTER 2025-05-19 07:56 | Outpatient (CLI) | payer MEDICARE, SELFPAY ==
--- OUTSIDE RECORDS SUMMARY | 2025-05-19 07:58 | XMS_ITS | Data Portability ---
Author Organization [facility] JOE Holder [employer] [place] [employer] Address [address] [place] [address] Care Team Providers Care Tool Engineer Name Role Phone PERNELLNATELora Bowen Primary Care Provider [phone] Assessment Encounter Date Assessment Date Assessment LastModified by Organization Details LastModified Time 07/17/2023 07/17/2023 Follow up yearly [email or web address] Not available 07/17/2023 09:39:43 09/06/2023 09/06/2023 Follow up yearly [email or web address] Not available 09/06/2023 15:07:13 02/06/2024 02/06/2024 Follow up yearly [email or web address] Not available 02/05/2024 13:56:25 Plan of Treatment Reminders Order Date Submit Date Provider Last Modified By Organization Details Last Modified Time Details Appointments DERM ESTABLISH ED 2024 11:10A M FLAKITO COTTON MD Not available Not available Not available Lab surgical pathology study 2023 024 [facility], [facility], [place], [address], 09/08/2023 10:30:45 urinalysi s panel, auto 2021 022 [email or web address] [facility], [address] [place] [address], [address], [place], [address], 06/16/2022 08:30:34 urinalysi s panel, auto 2021 022 [email or web address] [facility], [address], [address] [place] [address], [address], 05/07/2022 11:23:31 PSA, serum or plasma 2021 022 [facility], [address], [address], [place], [address], 05/07/2022 11:23:31 Referral None recorded. Procedures None recorded. Surgeries None recorded. Imaging None recorded. Medication Orders None recorded. Patient TargetsNo targets recorded. Patient Instructions Encounter Date Encounter Id Patient Instructions Last Modified By Organization Details Last Modified Time 06/15/2022 [id number] healthy together Not availabl e 06/16/2022 08:30:34 07/17/2023 [id number] Education: We discussed the potential diagnostic options, options for further evaluation and treatments, and the risks and benefits of each. [email or web address] Not available 07/17/2023 07:19:52 02/06/2024 [id number] Education: We discussed the potential diagnostic options, options for further evaluation and treatments, and the risks and benefits of each. Not available 02/05/2024 13:56:25 Reason for Referral None Reported. Results Created Date Observation Date Name Description Value Unit Range Abnormal Flag Note LastModifiedBy Organization Detail LastModifiedTime 04/12/2004/12/2022 urina lysis panel , auto Unknown Analyte Clean Catch Not Available [facility] [address], [place], [address], 04/12/2022 13:17:01 04/12/2004/12/2022 urina lysis panel , auto Unknown Analyte Yellow Not Available [facility] [address], [address], 04/12/2022 13:17:01 04/12/20 22 04/12/2022 urina lysis panel , auto Unknown Analyte Clear Not Available [facility] [address] [place] [address] Rd [address], [place], [address], 04/12/2022 13:17:01 04/12/20 22 04/12/2022 urina lysis panel , auto Unknown Analyte 1.020 Not Available [facility] [address] [place] [address] [address], [place], [address], 04/12/2022 13:17:01 04/12/2004/12/2022 urina lysis panel , auto Unknown Analyte 1.003- 1.035 Not Available [facility] [address], [place], [address], 04/12/2022 13:17:01 04/12/2004/12/2022 urina lysis panel , auto Unknown Analyte 5.0 Not Available [facility] [address] [place] [address] [address], [place], [address], 04/12/2022 13:17:01 04/12/2004/12/2022 urina lysis panel , auto Unknown Analyte 5.0-8. 0 Not Available [facility] [address] [place] [address] [address], [place], [address], 04/12/2022 13:17:01 04/12/2004/12/2022 urina lysis panel , auto Unknown Analyte Negati ve Not Available [facility] [address] [place] [address] [address], [place], [address], 04/12/2022 13:17:01 04/12/20 22 04/12/2022 urina lysis panel , auto Unknown Analyte Negati ve Not Available [facility] [address] [place] [address] [address], [place], [address], 04/12/2022 13:17:01 04/12/20 22 04/12/2022 urina lysis panel , auto Unknown Analyte Negati ve Not Available [facility] [address] [place] [address] [address], [place], [address], 04/12/2022 13:17:01 04/12/2004/12/2022 urina lysis panel , auto Unknown Analyte Negati ve Not Available [facility] [address], [place], [address], 04/12/2022 13:17:01 04/12/2004/12/2022 urina lysis panel , auto Unknown Analyte Trace Not Available [facility] [address], [place], [address], 04/12/2022 13:17:01 04/12/2004/12/2022 urina lysis panel , auto Unknown Analyte Negati ve Not Available [facility] [address] [place] [address] [address], [place], [address], 04/12/2022 13:17:01 04/12/2004/12/2022 urina lysis panel , auto Unknown Analyte Normal Not Available [facility] [address] [place] [address] [address], [place], [address], 04/12/2022 13:17:01 04/12/2004/12/2022 urina lysis panel , auto Unknown Analyte Normal Not Available [facility] [address] [place] [address] [address], [place], [address], 04/12/2022 13:17:01 04/12/2004/12/2022 urina lysis panel , auto Unknown Analyte 15 mg/dl (Sm) Not Available [facility] [address] [place] [address] [address], [place], [address], 04/12/2022 13:17:01 04/12/2004/12/2022 urina lysis panel , auto Unknown Analyte Negati ve Not Available [facility] [address], [place], [address], 04/12/2022 13:17:01 04/12/2004/12/2022 urina lysis panel , auto Unknown Analyte Normal Not Available [facility] [address], [place], [address], 04/12/2022 13:17:01 04/12/2004/12/2022 urina lysis panel , auto Unknown Analyte Normal 1 mg/dl Not Available [facility] [address], [place], [address], 04/12/2022 13:17:01 04/12/2004/12/2022 urina lysis panel , auto Unknown Analyte Negati ve Not Available [facility] [address], [place], [address], 04/12/2022 13:17:01 04/12/2004/12/2022 urina lysis panel , auto Unknown Analyte Negati ve Not Available [facility] [address], [place], [address], 04/12/2022 13:17:01 04/12/20 22 04/12/2022 urina lysis panel , auto Unknown Analyte 250 Daniel/ul Not Available [facility] [address], [place], [address], 04/12/2022 13:17:01 04/12/2004/12/2022 urina lysis panel , auto Unknown Analyte Negati ve Not Available [facility] [address], [address], 04/12/2022 13:17:01 05/04/20 22 05/04/2022 PSA, serum or plasm a PSA 0.66 NG/mL 0.0 - 4.0 Not Available [facility] [address], [place], [address], 05/04/2022 14:53:27 05/04/20 22 05/04/2022 urina lysis panel , auto Unknown Analyte Clean Catch Not Available [facility] [address], [place], [address], 05/04/2022 13:15:45 05/04/20 22 05/04/2022 urina lysis panel , auto Unknown Analyte Straw Not Available [facility] [address], [address], 05/04/2022 13:15:45 05/04/20 22 05/04/2022 urina lysis panel , auto Unknown Analyte Clear Not Available [facility] [address], [place], [address], 05/04/2022 13:15:45 05/04/20 22 05/04/2022 urina lysis panel , auto Unknown Analyte 1.005 Not Available [facility] [address], [place], [address], 05/04/2022 13:15:45 05/04/20 22 05/04/2022 urina lysis panel , auto Unknown Analyte 1.003- 1.035 Not Available [facility] [address], [place], [address], 05/04/2022 13:15:45 05/04/20 22 05/04/2022 urina lysis panel , auto Unknown Analyte 7.0 Not Available [facility] [address], [place], [address], 05/04/2022 13:15:45 05/04/20 22 05/04/2022 urina lysis panel , auto Unknown Analyte 5.0-8. 0 Not Available [facility] [address], [place], [address], 05/04/2022 13:15:45 05/04/20 22 05/04/2022 urina lysis panel , auto Unknown Analyte Negati ve Not Available [facility] [address] [place] [address] [address], [place], [address], 05/04/2022 13:15:45 05/04/20 22 05/04/2022 urina lysis panel , auto Unknown Analyte Negati ve Not Available [facility] [address] [place] [address] [address], [place], [address], 05/04/2022 13:15:45 05/04/20 22 05/04/2022 urina lysis panel , auto Unknown Analyte Negati ve Not Available [facility] [address] [place] [address] [address], [place], [address], 05/04/2022 13:15:45 05/04/20 22 05/04/2022 urina lysis panel , auto Unknown Analyte Negati ve Not Available [facility] [address], [place], [address], 05/04/2022 13:15:45 05/04/20 22 05/04/2022 urina lysis panel , auto Unknown Analyte Negati ve Not Available [facility] [address] [place] [address] [address], [place], [address], 05/04/2022 13:15:45 05/04/20 22 05/04/2022 urina lysis panel , auto Unknown Analyte Negati ve Not Available [facility] [address] [place] [address] [address], [place], [address], 05/04/2022 13:15:45 05/04/20 22 05/04/2022 urina lysis panel , auto Unknown Analyte Normal Not Available [facility] [address] [place] [address] [address], [place], [address], 05/04/2022 13:15:45 05/04/20 22 05/04/2022 urina lysis panel , auto Unknown Analyte Normal Not Available [facility] [address], [place], [address], 05/04/2022 13:15:45 05/04/20 22 05/04/2022 urina lysis panel , auto Unknown Analyte Negati ve Not Available [facility] [address], [place], [address], 05/04/2022 13:15:45 05/04/20 22 05/04/2022 urina lysis panel , auto Unknown Analyte Negati ve Not Available [facility] [address], [place], [address], 05/04/2022 13:15:45 05/04/20 22 05/04/2022 urina lysis panel , auto Unknown Analyte Normal Not Available [facility] [address], [place], [address], 05/04/2022 13:15:45 05/04/20 22 05/04/2022 urina lysis panel , auto Unknown Analyte Normal 1 mg/dl Not Available [facility] [address] [place] [address] [address], [place], [address], 05/04/2022 13:15:45 05/04/20 22 05/04/2022 urina lysis panel , auto Unknown Analyte Negati ve Not Available [facility] [address], [place], [address], 05/04/2022 13:15:45 05/04/20 22 05/04/2022 urina lysis panel , auto Unknown Analyte Negati ve Not Available [facility] [address], [place], [address], 05/04/2022 13:15:45 05/04/20 22 05/04/2022 urina lysis panel , auto Unknown Analyte 50 Daniel/ul Not Available [facility] [address] [place] [address] [address], [place], [address], 05/04/2022 13:15:45 05/04/20 22 05/04/2022 urina lysis panel , auto Unknown Analyte Negati ve Not Available [facility] [address], [place], [address], 05/04/2022 13:15:45 06/15/20 22 06/15/2022 urina lysis panel , auto Unknown Analyte Clean Catch Not Available [facility] [address], [place], [address], 06/15/2022 13:01:15 06/15/20 22 06/15/2022 urina lysis panel , auto Unknown Analyte Yellow Not Available [facility] [address], [place], [address], 06/15/2022 13:01:15 06/15/20 22 06/15/2022 urina lysis panel , auto Unknown Analyte Clear Not Available [facility] [address], [address], 06/15/2022 13:01:15 06/15/20 22 06/15/2022 urina lysis panel , auto Unknown Analyte 1.010 Not Available [facility] [place] [address], [place], [address], 06/15/2022 13:01:15 06/15/20 22 06/15/2022 urina lysis panel , auto Unknown Analyte 1.003- 1.035 Not Available [facility] [address], [place], [address], 06/15/2022 13:01:15 06/15/20 22 06/15/2022 urina lysis panel , auto Unknown Analyte 5.0 Not Available [facility] [address], [place], [address], 06/15/2022 13:01:15 06/15/20 22 06/15/2022 urina lysis panel , auto Unknown Analyte 5.0-8. 0 Not Available [facility] [address], [place], [address], 06/15/2022 13:01:15 06/15/20 22 06/15/2022 urina lysis panel , auto Unknown Analyte Negati ve Not Available [facility] [address], [place], [address], 06/15/2022 13:01:15 06/15/20 22 06/15/2022 urina lysis panel , auto Unknown Analyte Negati ve Not Available [facility] [address], [place], [address], 06/15/2022 13:01:15 06/15/20 22 06/15/2022 urina lysis panel , auto Unknown Analyte Negati ve Not Available [facility] [address], [place], [address], 06/15/2022 13:01:15 06/15/20 22 06/15/2022 urina lysis panel , auto Unknown Analyte Negati ve Not Available [facility] [address], [place], [address], 06/15/2022 13:01:15 06/15/20 22 06/15/2022 urina lysis panel , auto Unknown Analyte Negati ve Not Available [facility] [address] [place] [address] [address], [place], [address], 06/15/2022 13:01:15 06/15/20 22 06/15/2022 urina lysis panel , auto Unknown Analyte Negati ve Not Available [facility] [address], [place], [address], 06/15/2022 13:01:15 06/15/20 22 06/15/2022 urina lysis panel , auto Unknown Analyte Normal Not Available [facility] [address] [place] [address] [address], [place], [address], 06/15/2022 13:01:15 06/15/20 22 06/15/2022 urina lysis panel , auto Unknown Analyte Normal Not Available [facility] [address], [place], [address], 06/15/2022 13:01:15 06/15/20 22 06/15/2022 urina lysis panel , auto Unknown Analyte Negati ve Not Available [facility] [address], [place], [address], 06/15/2022 13:01:15 06/15/20 22 06/15/2022 urina lysis panel , auto Unknown Analyte Negati ve Not Available [facility] [address], [place], [address], 06/15/2022 13:01:15 06/15/20 22 06/15/2022 urina lysis panel , auto Unknown Analyte Normal Not Available [facility] [address] [place] [address] [address], [place], [address], 06/15/2022 13:01:15 06/15/20 22 06/15/2022 urina lysis panel , auto Unknown Analyte Normal 1 mg/dl Not Available [facility] [address] [place] [address] [address], [place], [address], 06/15/2022 13:01:15 06/15/20 22 06/15/2022 urina lysis panel , auto Unknown Analyte Negati ve Not Available [facility] [address] [place] [address] [address], [place], [address], 06/15/2022 13:01:15 06/15/20 22 06/15/2022 urina lysis panel , auto Unknown Analyte Negati ve Not Available [facility] [address] [place] [address] [address], [place], [address], 06/15/2022 13:01:15 06/15/20 22 06/15/2022 urina lysis panel , auto Unknown Analyte 50 Daniel/ul Not Available [facility] [address] [place] [address] [address], [place], [address], 06/15/2022 13:01:15 06/15/20 22 06/15/2022 urina lysis panel , auto Unknown Analyte Negati ve Not Available [facility] Fracisco Kim [facility] [address] [place] [address] [address], [place], [address], 06/15/2022 13:01:15 09/06/19 24 09/06/2023 SURGI MEGHNA [...] 10:30 Page 1 of 1 Not Available [facility] [address] [place], [address], 09/08/2023 10:30:45 Result Notes None recorded. 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 Procedures Surgical History Date Name Laterality Status Provider Name and Address Organization Details Recorded Time 02/06/20 24 Destruction BN Lesions completed Patricia Gorman [facility] 02/06/2024 09:46:09 09/06/19 24 Excision BN lesion; trunk, arms or legs completed FLAKITO COTTON MD [address] [place] [address], [address], [facility] 09/06/2023 16:59:17 05/03/20 22 I&D Abscess/Cyst Single/Simple completed Michelle Cross [facility] 05/03/2022 15:05:17 04/28/20 21 Post Void Residual; Ultrasound completed Rocío López [facility] 04/28/2021 15:35:42 02/09/20 21 Electromyography (EMG) with Nerve Conduction Study (NCV) completed ZAHIDA MONTEMAYOR MD [address] [place] [address], [address], [facility] 02/08/2021 17:42:53 01/22/20 21 Injection - Joint/Bursa, Major completed RIDGE SHER MD [address] [place] [address], [address], [facility] 01/21/2021 13:34:30 05/29/20 20 Shave Lesion; face, ear, eyelid, nose, lip, muc memb completed FLAKITO COTTON MD [address] [place], [address], [facility] 06/06/2020 16:00:07 01/08/20 19 Destruction Premalignant Lesion(s) completed Ines Collado [facility] 2019 14:20:12 04/03/20 18 Destruction Premalignant Lesion(s) completed Yue Eddie [facility] 04/03/2018 11:12:57 04/03/20 18 [facility] 11:12:31 11/30/19 18 Post Void Residual; Ultrasound completed Ashlee Ocampo [facility] 11/29/2017 15:51:47 Cholecystectomy completed Zeus Solomon [facility] 06/14/2017 14:09:42 Imaging Results None recorded. Procedure [...] Updated DateTime 05/04/2022 182.88 cm 25.1 kg/m2 47243.59 g Ferdinand Olson [facility] 05/04/2022 13:14:58 Date Recorded Body height Body mass index (BMI) Body weight Provider Name and Address Organization Details Last Updated DateTime 06/15/2022 182.88 cm 25.1 kg/m2 36025.59 g Aleta Stockton [facility] 06/15/2022 13:00:54 Social History Question Answer Notes LastModified by [employer] ion Details LastModified Time Tobacco Smoking Status Former Smoker Zeus Solomon [facility] 06/14/2017 14:09:29 Marital Status [email or web address] [employer] not available 06/14/2017 What Was The Date Of Your Most Recent Tobacco Screening? 03/15/2022 [email or web address] Information not available 03/15/2022 What Is Your Relationship Status? [email or web address] Information not available 05/04/2022 Has Tobacco Cessation Counseling Been Provided? No [email or web address] Information not available 05/04/2022 Have You Recently Traveled Abroad? No [email or web address] Information not available 05/04/2022 Sex: Unknown Functional Status Question Answer Note LastModified by Organizat ion Details LastModified Time Do you use any illicit or recreational drugs? No [email or web address] Information not available 05/04/2022 Do you or have you ever used any other forms of tobacco or nicotine? No [email or web address] Information not available 05/04/2022 What is your [...] ICD10 Code Diagnosis IMO Codes Diagnosis Note [id number] QM_IMPOR[place] [address] 09/19/2016 17:14:13 09/19/2016 17:14:13 [id number] FLAKITO COTTON MD [facility] [address] [place] [address] 01/13/2017 10:49:29 01/16/2017 08:49:36 Lentigo 334097462 L81.4 reassuranc e Senile hyperkeratosis 39 9213760 L82.1 reassuranc e Lipoma 04553095 D17.9 reassuranc e Hemangioma 202584620 D18 .00 reassuranc e Tick bite without infection 853399482 T14.8 removed with forceps [id number] MAC ALMEIDA MD [facility] [address] [place] [address] 06/14/2017 11:55:53 06/14/2017 16:37:54 Chronic prostatitis 99504148 N41.1 Esthela shirley that his symptoms have [...] rises that typically is normal at home. [id number] JOYA WALLACE MD ENT [address] [place] [address] 07/21/2017 12:39:50 07/21/2017 15:46:31 Bilateral tinnitus 3090896411 102 H93.13 secondary to sensorineu ral hearing loss. Not severe enough for hearing aids. Discussed lack of adequate treatment options for tinnitus Perforatio n of nasal septum 68193857 J34.89 from a history of septoplast y by another surgeon in the past. Having nasal obstructio n which I think is due to bilateral inferior turbinate hypertroph y. We discussed surgical interventi on. He will consider and let us know Sensorineu ral hearing loss of bilateral ears 546399308 H90.3 [id number] ZOHREH DINEROJOHANN, ASHTYN ENT [address] [place] [address] 07/21/2017 13:32:49 07/21/2017 15:44:55 Sensorineural hearing loss of bilateral ears 328318275 H90.3 Bilateral tinnitus 55322 00685 102 H93.13 [id number] MAC ALMEIDA MD [facility] [address] [place] [address] 11/29/2017 15:32:36 11/29/2017 16:28:10 Chronic prostatitis 57138628 N41.1 discussion time 30 minutes. I suggest we treat him with finasterid e 5 mg daily for at least 3 months. He is also placed on Bactrim double strength twice a day for 2 weeks and nabumetone twice a day for 2 weeks. He will follow-up in one month [id number] MD AZRA SCOTT [facility] [address] [place] [address] 04/03/2018 10:18:35 04/03/2018 14:10:45 Senile hyperkeratosis 608996006 L82.[address] x 1 Hemangioma 467642052 D18 .00 reassuranc e Actinic keratosis 080602 [address] x 1 Pain of skin 150932669 R 52 [id number] MD AZRA SCOTT [address] [place] [address] 2019 13:56:11 2019 16:02:03 Senile hyperkeratosis 005942585 L82.1 Reassuranc e and education regarding the disorder and options. Hemangioma 459299130 D18 .00 Reassuranc e and education regarding the disorder and options. Actinic keratosis 007 L57.0 Education, then cryodestru ction with liquid nitrogen (LN) x 2 [id number] MAC ALMEIDA MD [facility] [address] [place] [address] 12/13/2019 08:47:06 12/13/2019 09:31:11 Chronic prostatitis 31381245 N41.1 we will start antibody therapy. We will also start Relafen and Flomax Primary er ectile dysfunction 654580223 N52.9 [id number] FLAKITO COTTON MD [facility] [address] [place] [address] 05/29/2020 11:09:16 05/29/2020 13:28:20 Raised seborrheic keratosis 7488428740 91275 L82.1 Reassuranc e and education regarding the disorder and options. Hemangioma 504130675 D18 .00 Reassuranc e and education regarding the disorder and options. Epidermoid cyst of skin 118647413 L72.3 Left upper back 2.2 cm - declined treatment at this time Neoplasm o f uncertain behavior of skin 38975154 D48.5 Left Sideburn - Education, thenshave removaland base destroyed with electrodes sication. Dysplastic nevus of skin 819657497 D22.9 Reassuranc e and education regarding the disorder and options. [id number] RIDGE SHER MD [facility] [address] [address] 11/11/2020 13:43:49 11/11/2020 14:46:12 Pain in left knee 6296171526 39479 M25.562 Mr Sloan has mild to moderate OA of the left knee. I recommend a course of diclofenac . Idiopathic peripheral neuropathy 06337195 G60.9 Mr Sloan has history consistent with peripheral neuropathy . He has lots of questions regardings the origins and treatments for the neuropathy . I recommend he take the gabapentin as previously prescribed by his PCP and consultati on with neurology. [id number] ZAHIDA MONTEMAYOR MD NEUROLOGY [facility] CLOSED [address] [place] [address] 01/15/2021 08:20:06 01/15/2021 09:27:59 Neuropathy 755298009 G62.9 [id number] RIDGE SHER MD [facility] [address] [address] 01/15/2021 09:51:01 01/15/2021 10:52:15 Tear of lateral meniscus of knee 475264227 S83.282A Mr Sloan has had recurring mechanical symptoms of catching of the left knee. I recommend MRI of the left knee to evaluate for lateral mensicus tear. [id number] RIDGE SHER MD [facility] [address] [address] 01/21/2021 13:08:05 01/21/2021 13:50:45 Tear of medial meniscus of knee 006074706 S83.242A Mr Sloan does have a complex [...] corticoste roid injection in the left knee. [id number] ZAHIDA MONTEMAYOR MD NEUROLOGY [facility] [address] [place] [address] 02/08/2021 09:19:50 02/09/2021 08:44:29 Neuropathy 341776982 G62.9 [id number] MD [facility] [address] [address] 03/30/2021 11:06:08 03/30/2021 12:14:21 Benign prostatic hyperplasia with outflow obstruction 550684620 N40.1 Retention of urine 15736 4002 R33.9 [id number] MD [facility] [address] [address] 03/31/2021 16:28:15 03/31/2021 16:57:49 Postoperative retention of urine 369296782 R33.8 He appears to be doing acceptably . He will follow up with me in 1 month. [id number] MAC ALMEIDA MD [facility] [address] [place] [address] 04/28/2021 14:55:45 04/28/2021 16:44:57 Benign prostatic hyperplasia with outflow obstruction 551845611 N40.1 Postoperat rufina retention of urine 987057050 R33.8 He appears to be doing acceptably . He will follow up with me in 6 month. with psa [id number] MAC ALMEIDA MD C[facility] [address] [place] [address] 03/15/2022 13:00:08 03/15/2022 13:33:17 Chronic prostatitis 38474198 N41.1 we will start antibody therapy. We will also start Relafen and Flomax Benign pro static hyperplasia with outflow obstruction 010975051 N40.1 follow-up 3-4 weeks [id number] MAC ALMEIDA MD [facility]EL[facility] [address] [facility] [address] [place] [address] 04/12/2022 12:57:09 04/12/2022 13:50:24 Benign prostatic hyperplasia with outflow obstruction 524563620 N40.1 follow-up 3-4 weeks With PSA Chronic prostatitis 1989 5009 N41.1 As above [id number] FLAKITO COTTON MD [facility] [address] [place] [address] 05/03/2022 14:47:52 05/03/2022 15:46:50 Solar lentiginosis 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 Multiple b enign melanocytic nevi 346486582 D22.9 reassuranc e Lipoma 52458491 D17.9 reassuranc e Skin sensa tion disturbance 08812687 R20.9 [id number] MAC ALMEIDA MD C[facility] [address] [place] [address] 05/04/2022 12:47:22 05/04/2022 13:42:09 Lower urinary tract symptoms due to benign prostatic hypertrophy 0579164574 9101 N40.1 Continue as above follow-up in 4-6 months, His PSA today was 0.66 Chronic prostatitis 1989 5009 N41.1 As above [id number] MAC ALMEIDA MD [facility] [address] [facility] [address] [place] [address] 06/15/2022 12:51:09 06/15/2022 13:36:36 Benign prostatic hyperplasia with outflow obstruction 758698821 N40.1 follow-up 6 months Chronic prostatitis 1989 5009 N41.1 As above [id number] FLAKITO COTTON MD [facility] [address] [place] [address] 07/17/2023 09:22:33 07/17/2023 11:56:00 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 name or strengthWi ll BX if becomes bothersome Hemangioma 084974921 D18 .00 Reassuranc e and education regarding the disorder and options. Inflamed s eborrheic keratosis 963149468 L82.0 LN X 5 Health Concerns Section Related Observation LastModified by Organization Detai ls LastModified Time None Recorded Concern Status LastModified by Organization Details LastModified Time None Recorded Advance Directives Directive None Recorded Payers Insurance Date Sequence Insurance Name Policy Number Policy Hein Covered Member ID Hein Member ID Guarantor Name 04/02/2018 1 [place] [id number] Laron Sloan [id number] Laron Sloan 02/09/2024 1 [employer] (MEDICARE REPLACEMENT/A DVANTAGE - PPO) Laron Sloan [id number] Laron Sloan Notes Date Note Type Note [...] to once per day. MAC ALMEIDA MD [facility] [place], [address], [facility] 05/07/2022 11:24:41 06/15/2022 text/html Patient is here [...] further assessment of intervention. MAC ALMEIDA MD [facility] [place], [address], [facility] 06/16/2022 08:31:06 07/17/2023 text/html ROS as noted in the HPI Established Patient LOCATION: left upper medial backDURATION: x yearsSYMPTOMS: raised, drainage, tender at timesTREATMENTS: I & D x twice Denies any other new, changing, or bleeding lesions, or other rashes, feels well,good mood and has no family history of melanoma. FLAKITO COTTON MD [facility] [place], [address], [facility] 07/17/2023 10:43:04 09/06/2023 text/html ROS as noted in the HPI Established patient returns for excision of tender flat nodule left upper medial back Denies any other new, changing, or bleeding lesions, or other rashes, feels well, good mood and has no family history of melanoma. FLAKITO COTTON MD [facility] [place], [address], [facility] 09/06/2023 17:01:57 02/06/2024 text/html ROS as noted in the HPI Established Patient LOCATION: left frontal scalp, left abdomenDURATION: x yearsSYMPTOMS: noneTREATMENTS: noneMODIFYING FACTORS: Pt is requesting removal today with LN No issues with bleeding, scarring, or healingDenies any other new, changing, or bleeding lesions, or other rashes, feels well,good mood and has no family history of melanoma. FLAKITO COTTON MD [address] [place] [address], [address], [facility] 02/06/2024 13:25:25
--- NOTE | 2025-05-19 08:30 | CT_ITS ---
FINAL REPORT TECHNIQUE: Thin section axial images were obtained from the lung bases to the pubic symphysis without IV contrast. Coronal reconstruction images were obtained from the axial data. Exam was performed using dose reduction technique. CLINICAL HISTORY: Epigastric pain, bloating COMPARISON: None FINDINGS: There is a 5 mm subpleural right lower lobe nodule on series 3 image 6. The lung bases are otherwise clear. There are no renal or ureteral stones. There is no hydronephrosis. There are bilateral parapelvic renal cysts. The gallbladder is absent. The liver, spleen, and pancreas are unremarkable. There are small bilateral adrenal nodules, both representing adenomas. There is no evidence of small bowel obstruction. The appendix is not identified and there are no secondary signs of acute appendicitis. There is a suture line in the rectum. GI tract is without acute abnormality. The prostate is unremarkable for age. There is no abdominal or pelvic lymphadenopathy or ascites. No acute osseous abnormality is identified. IMPRESSION: No acute intra-abdominal or intrapelvic abnormality on this unenhanced exam. 5 mm right lower lobe pulmonary nodule. Recommend follow-up after risk stratification per Fleischner criteria. Reviewed, Interpreted and Dictated by Demetria Brice MD Transcribed by Daya Thrasher Authenticated and [facility]
== END 2025-05-19 23:59 | disposition home or self-care (01) ==
LOC: RAD 07:56
PROVIDERS: PCP Internal Medicine; Visit Provider Internal Medicine
DX: R91.1 Solitary pulmonary nodule (principal); R10.13 Epigastric pain; R14.0 Abdominal distension (gaseous)
CPT/HCPCS: 74176

== ENCOUNTER 2025-05-30 10:29 | Outpatient (CLI) | payer MEDICARE, SELFPAY ==
--- NOTE | 2025-05-30 11:00 | CT_ITS ---
FINAL REPORT TECHNIQUE: Axial images were obtained through the chest without contrast. Reconstructed images were obtained and reviewed. This study was performed with techniques to keep radiation doses as low as reasonably achievable, (ALARA). Individualized dose reduction techniques using automated exposure control or adjustment of mA and/or kV according to the patient's size were employed. CLINICAL HISTORY: Right lower lung nodule COMPARISON: 05/19/2025 FINDINGS: The heart size is normal. There is no pericardial or pleural effusion. Limited images of the upper abdomen are unremarkable. There is a small pleural-based density in the periphery of the right lower lobe measuring 5 mm well-seen on image 186 of series 3. There may be some adjacent cicatricial reaction. IMPRESSION: Right lower lobe pleural-based density. Recommend follow-up in 1 year as per Fleischner criteria. Reviewed, Interpreted and Dictated by Leonel Carr MD Transcribed by Madhavi Reid Authenticated and [facility]
== END 2025-05-30 23:59 | disposition home or self-care (01) ==
LOC: RAD 10:29
PROVIDERS: PCP Internal Medicine; Visit Provider Internal Medicine
DX: R91.8 Other nonspecific abnormal finding of lung field (principal); R91.1 Solitary pulmonary nodule
CPT/HCPCS: 71250

== ENCOUNTER 2025-06-04 08:30 | Outpatient (CLI) | payer MEDICARE, SELFPAY | END 2025-06-04 23:59 | disposition home or self-care (01) | LOC: LAB 08:31 | PROVIDERS: PCP Internal Medicine; Visit Provider Internal Medicine Gastroenterology | DX: R14.0 Abdominal distension (gaseous) (principal); R14.3 Flatulence | CPT/HCPCS: 82653 ==